=== PATIENT | male | born 1980 | race Hispanic/Latino ===

== ENCOUNTER 2022-10-29 23:22 | Emergency (ER) | payer OTHER ==
[~2022-10-29] VITALS: Ht 175.3 cm; Wt 138.8 kg
[~2022-10-29 23:22] MED LIST: APIX5TAB PO; METF-444 PO; PANT40TA PO
[2022-10-29 23:33] LABS: ABG BASE EXCESS -6.7 mmol/L (-2.0-3.0); ABG HCO3 15.2 mmol/L (21.0-28.0); ABG OXYGEN SATURATION 94.7 % (95.0-99.0); ABG PCO2 24 mmHg (35-48)
[2022-10-29 23:41] LABS: BASOPHILS % (AUTO) 0.5 % (0.0-5.0); EOSINOPHILS % (AUTO) 0.2 % (0.0-8.0); HEMATOCRIT 50.3 % (42-54); LYMPHOCYTES % (AUTO) 23.2 % (21.0-51.0); MEAN CORPUSCULAR HEMOGLOBIN 30.5 pg (27.0-33.0); MEAN CORPUSCULAR HGB CONC 34.2 g/dL (32.0-36.0); MEAN CORPUSCULAR VOLUME 89.2 fL (79-99); MONOCYTES % (AUTO) 6.6 % (3.0-13.0); NEUTROPHILS % (AUTO) 68.6 % (40.0-77.0); PLATELET COUNT (AUTO) 96 K/uL (130-400); RED BLOOD CELL COUNT(AUTO) 5.64 MIL/uL (4.50-6.20); RED CELL DISTRIBUTION WIDTH 13.7 % (11.0-15.5)
[2022-10-29 23:52] LABS: INFLUENZA TYPE A NEGATIVE FOR TYPE A (NEG); INFLUENZA TYPE B NEGATIVE FOR TYPE B (NEG)
[2022-10-29 23:57] LABS: ALBUMIN 3.4 g/dL (3.5-5.0); CREATININE 1.4 mg/dL (0.5-1.5); TOTAL PROTEIN, SERUM 7.1 g/dL (6.0-8.3)
[2022-10-30] MEDS ORDERED: 0.9%NACL 1000ML 3,000 ML IV ONE
[2022-10-30] MEDS ORDERED: IPRATROPIUM/ALBUTEROL SULFATE 3 ML SOLUTION IH ONE ×2
[2022-10-30] MEDS ORDERED: SOLU-MEDROL 125MG VIAL IVP ONE
[2022-10-30] MEDS ORDERED: IOHEXOL 350 MG/ML 100ML INFUS..BTL IV ONE (00:25)
[2022-10-30 01:08] LABS: INR 1.3 (0.85-1.15)
[2022-10-30 01:09] LABS: PARTIAL THROMBOPLASTIN TIME 26.4 SEC (26.3-35.5)
[2022-10-30] MEDS ORDERED: HEPARIN 25,000 UNITS/250ML D5W 250 ML IV SCH (02:30)
[2022-10-30] MEDS ORDERED: INSULIN HUMULIN R 100 UNIT/ML 3ML ONE (02:30)
[2022-10-30] MEDS ORDERED: INSULIN REGULAR, HUMAN 3ML 100 UNIT in 0.9%NACL 100ML 99 ML IV SCH ×2 (02:30)
[2022-10-30] MEDS ORDERED: HEPARIN 5,000 UNIT VIAL SQ PRN (02:30)
[2022-10-30 03:46] LABS: CREATININE 1.5 mg/dL (0.5-1.5); POTASSIUM 4.1 mmol/L (3.5-5.1)
[2022-10-30] MEDS ORDERED: INSULIN HUMULIN R 100 UNIT/ML 3ML IV ONE (04:00)
[2022-10-30 04:13] VITALS: BP 138/97
== END 2022-10-30 04:40 | disposition short-term general hospital (02) ==
LOC: EDH 23:22
DX: I26.99 Other pulmonary embolism without acute cor pulmonale (principal); E11.65 Type 2 diabetes mellitus with hyperglycemia; Z79.84 Long term (current) use of oral hypoglycemic drugs; Z79.899 Other long term (current) drug therapy; Z90.49 Acquired absence of other specified parts of digestive tract; Z86.718 Personal history of other venous thrombosis and embolism; Z98.890 Other specified postprocedural states
CPT/HCPCS: 99291; 71045; 87635; 96375 ×2; 82947; 84484 ×2; 80053; 82803; 83880; 85025; 85378; 85610; 85730; 87040 ×2; 87804 ×2; 83930; 82010 ×2; 36415 ×2; 99292; 93005; 36600; 94640; 82435; 85018; 82948 ×3; 84132; 84295; 96365; 71270; 96366; 96368; 80048; 83605 ×3; C9803; J2930; J1815 ×3; J1644 ×2; Q9967

== ENCOUNTER 2024-08-08 19:16 | Emergency (ER) | payer SELFPAY ==
[~2024-08-08] VITALS: Ht 180.3 cm; Wt 124.3 kg
--- NOTE | 2024-08-08 19:28 | ERN ---
General Stated Complaint: HIGH BLOOD SUGAR, HEADACHE, SWEATING Time Seen by MD: 19:21 Source: patient History of Present Illness Initial Comments A 43-year-old male coming in to be evaluated for generalized body weakness. Patient states he checked his blood glucose and it was 0409. Patient is a diabetic. Patient states he felt really weak left-sided weakness. Allergies: Coded Allergies: No Known Allergies (Unverified Allergy, Unknown, 08/06/21) Home Meds Active Scripts Metformin HCl (Metformin HCl) 500 Mg Tablet, 500 MG PO BID, #60 TAB 0 Refills Prov:COLINDRESCHETAN Melton AGPCNP 08/09/21 Apixaban (Eliquis) 5 Mg Tablet, 5 MG PO BID, #30 TAB 2 Refills Prov:CHETAN COLINDRES AGPCNP 08/09/21 Pantoprazole Sodium (Protonix) 40 Mg Tablet.dr, 40 MG PO DAILY, #30 TAB 0 Refills Prov:BERNADINECHETAN B AGPCNP 08/09/21 Apixaban (Eliquis) 5 Mg Tablet, 10 MG PO BID, #10 TAB 0 Refills Prov:CHETAN COLINDRES Geronimo AGPCNP 08/09/21 Past Medical History Past Medical History: Diabetes-Type II, DVT Past Surgical History: Cholecystectomy Surgical History Other: RIGHT HAND SURGERY Family History Family History: HTN Social History Social History: Negative, Lives with family ROS Dictation CONSTITUTIONAL: No chills, no fever, no weakness, no diaphoresis, no malaise. HEAD/FACE: No signs of trauma. EENT: No eye pain, no blurred vision, no tearing, no double vision, no ear pain, no ear discharge, no nose pain, no nasal congestion, no throat pain, no throat swelling, no mouth pain. RESPIRATORY: No cough, no orthopnea, no SOB, no stridor, no wheezing. CARDIOVASCULAR: No chest pain, no edema, no palpitations, no syncope. GASTROINTESTINAL/ABDOMINAL: No abdominal pain, no constipation, no diarrhea, no nausea, no vomiting. GENITOURINARY: No abnormal discharge, no dysuria, no frequent urination, no hematuria. No complaints of pain in the genitals. MUSCULOSKELETAL: No back pain, no gout, no joint pain, no joint swelling, no muscle pain, no muscle stiffness, no neck pain. INTEGUMENTARY: No change in color, no change in hair/nails, no dryness, no lesion, no lumps, no rash. NEUROLOGICAL/PSYCH: No anxiety, not depressed, no emotional problem, no headache, no numbness, no pre-existing deficit, no history of seizures, no tremors, no weakness. HEMATOLOGIC/LYMPHATIC: Not anemic, no history of blood clots, no apparent bleeding, no bruising, glands not swollen. All Systems Negative, Except as Noted. Physical Exam Physical Exam Dictation VITAL SIGNS: Reviewed. GENERAL APPEARANCE: Alert, oriented x3, no acute distress, obese. HEAD AND FACE: Non-traumatic. EYES: PERRL, pink conjunctivas, eyelid no trauma, anterior chamber clear. EARS: Pinnas intact and no signs of trauma or erythema. Ear canals clear and no discharge. TMs no erythema. NOSE: No discharge, no bleeding. OROPHARYNX: Mouth normal, teeth no caries, tongue pink. Pharynx clear, no erythema. Tonsils no exudates, no abscesses noted. Mucous membrane moist. NECK: Supple, non-tender, no thyromegaly, no masses, no JVD, no bruits. BREAST: Deferred. CHEST: No tenderness, no crepitus, no paradoxical movement, no retractions. LUNGS: Clear, well-ventilated, symmetric, no rales, no wheezing, no rhonchi, no stridor, good breath sounds bilaterally. HEART: Regular rate, regular rhythm, no murmur, no gallops. VASCULAR: No peripheral edema. ABDOMEN: Soft, positive bowel sounds, nondistended, no guarding, nontender, no rebound, no masses no hepatomegaly, no splenomegaly, no Munguia's sign, no hernias. RECTAL: Deferred. GENITAL: Deferred. NEUROLOGICAL: Normal speech, gross motor function intact, gross sensory function intact. MUSCULOSKELETAL: Neck nontender, full range of motion, back nontender, full range of motion. EXTREMITIES: Nontender, full range of motion. SKIN: Color pink, dry, no turgor, no rash, no lacerations, no abrasions, no contusions. LYMPHATICS: Deferred. Results Laboratory and Microbiology Lab and Micro Result Laboratory Tests Test 08/08/24 19:53 08/08/24 20:23 08/08/24 20:36 White Blood Count 7.8 K/uL (4.8-10.8) Red Blood Count 6.01 MIL/uL (4.50-6.20) Hemoglobin 18.7 g/dL (14.0-18.0) H Hematocrit 52.2 % (42-54) Mean Corpuscular Volume 86.9 fL (79-99) Mean Corpuscular Hemoglobin 31.1 pg (27.0-33.0) Mean Corpuscular Hemoglobin Concent 35.8 g/dL (32.0-36.0) Red Cell Distribution Width 11.9 % (11.0-15.5) Platelet Count 148 K/uL (130-400) Mean Platelet Volume 11.7 fL (7.5-10.5) H Immature Granulocyte % (Auto) 1.3 % (0-1) H Neutrophils (%) (Auto) 66.7 % (40.0-77.0) Lymphocytes (%) (Auto) 17.0 % (21.0-51.0) L Monocytes (%) (Auto) 12.1 % (3.0-13.0) Eosinophils (%) (Auto) 2.4 % (0.0-8.0) Basophils (%) (Auto) 0.5 % (0.0-5.0) Neutrophils # (Auto) 5.2 K/uL (1.8-7.7) Lymphocytes # (Auto) 1.3 K/uL (1.0-4.8) Monocytes # (Auto) 1.0 K/uL (0.1-1.0) Eosinophils # (Auto) 0.19 K/uL (0.00-0.70) Basophils # (Auto) 0.04 K/uL (0.00-0.20) Absolute Immature Granulocyte (auto 0.10 K/uL (0-1) Nucleated Red Blood Cells 0.0 % (0.0-0.19) Prothrombin Time 11.4 SEC (9.6-11.6) Prothromb Time International Ratio 1.02 (0.85-1.15) Activated Partial Thromboplast Time 29.6 SEC (26.3-35.5) Sodium Level 126 mmol/L (136-145) L Potassium Level 3.6 mmol/L (3.5-5.1) Chloride Level 91 mmol/L (101-111) L Carbon Dioxide Level 26 mmol/L (21-32) Blood Urea Nitrogen 12 mg/dL (7-18) Creatinine 1.0 mg/dL (0.5-1.3) Glomerular Filtration Rate Calc 95 mL/min (>90) Random Glucose 366 mg/dL (70-105) H Total Calcium 9.2 mg/dL (8.5-10.1) Magnesium Level 1.70 mg/dL (1.80-2.40) L Total Creatine Kinase 31 U/L (21-232) Troponin I High Sensitivity 6 ng/L (4-75) B-Type Natriuretic Peptide 14 pg/mL (0-100) Urine Color YELLOW (YELLOW) Urine Appearance CLEAR (CLEAR) Urine pH 6.0 (5.0-8.0) Urine Specific [place] 1.037 (1.001-1.031) Urine Protein 70 mg/dL (NEGATIVE) H Urine Glucose (UA) >=1000 mg/dL (NEGATIVE) H Urine Ketones 40 mg/dL (NEGATIVE) H Urine Occult Blood +- (TRACE) (NEGATIVE) H Urine Nitrate NEGATIVE (NEGATIVE) Urine Bilirubin NEGATIVE mg/dL (NEGATIVE) Urine Urobilinogen 0.2 mg/dL (0.2-1.0) Urine Leukocyte Esterase NEGATIVE [place]/uL Urine RBC 2-5 /HPF (0-1) H Urine WBC 0-1 /HPF (0-1) Urine Squamous Epithelial Cells RARE /HPF (0-2) Urine Bacteria None /HPF (None Seen) Blood Gas Specimen Type Arterial Arterial Blood pH 7.456 (7.350-7.450) Arterial Blood Partial Pressure CO2 28 mmHg (35-48) L Arterial Blood Partial Pressure O2 64.2 mmHg (83.0-108.0) L Arterial Blood HCO3 19.4 mmol/L (21.0-28.0) L Arterial Blood Oxygen Saturation 94.2 % (94.0-98.0) Arterial Blood Base Excess -2.5 mmol/L (-2.0-3.0) L Hemoglobin (Blood Gas) 19.9 g/dL (13.5-17.5) *H Sodium (Blood Gas) 124 MMOL/L (136-145) L Bedside Potassium (Blood Gas) 3.9 MMOL/L (3.4-4.5) Bedside Chloride (Blood Gas) 95 MMOL/L (98-107) L Bedside Glucose (Blood Gas) 369 MG/DL (65-95) H Bedside Ionized Calcium (Blood Gas) 1.20 MMOL/L (1.15-1.33) Bedside Lactic Acid (Blood Gas) 1.94 MMOL/L (0.36-0.75) H Blood Gas Temperature 37.0 CELSIUS (35.5-37.0) Blood Gas Vent Mode ROOMAIR (ROOM AIR) FiO2 21.0 % Blood Gas Specimen Comment RB P RAMAKRISHNA Labs Reviewed?: Yes EKG/XRAY/US/CT/MRI EKG Comment 08/08/2024 time 7:42 p.m. Ventricular rate 126 Sinus tachycardia [place] [address] wave elevation or depression MDM MDM: Differential diagnosis: Dehydration, diabetes mellitus hyperglycemia, sinusitis, Patient is a 43-year-old gentleman coming in to be evaluated for generalized body weakness he checked his sugar and he states that it was in the 400s. He was a diabetic. Patient was evaluated with cardiac workup glucose was in the 300s patient received 2 L of fluid due to hemoconcentration. Patient will be discharged in stable condition. Before discharging patient also states that he had bilateral ear discomfort I evaluated ears right-sided cerumen impaction left side tympanic membrane erythema as well as bilateral nasal turbinate swelling and oropharyngeal erythema. Patient will be discharged with a diagnosis of sinusitis with diabetes mellitus uncontrolled. ED Course Orders Procedure Category Date Status Time Cbc With Differential LAB 08/08/24 Complete 19:24 Prothrombin Time With LAB 08/08/24 Complete INR 19:24 B-Type Natriuretic LAB 08/08/24 Complete Peptide 19:24 Chest 1vw RAD 08/08/24 Resulted 19:24 12 Lead Ekg Tracing- EKG 08/08/24 Complete Technical 19:24 Lactated Ringers PHA 08/08/24 Complete 1000ml (Lactated 19:30 Magnesium LAB 08/08/24 Complete 19:24 Creatine Kinase, Total LAB 08/08/24 Complete 19:24 Troponin I High LAB 08/08/24 Complete Sensitivity 19:24 Urinalysis Profile LAB 08/08/24 Complete 19:24 Partial LAB 08/08/24 Complete Thromboplastin Time 19:24 Basic Metabolic Panel LAB 08/08/24 Complete 19:24 Arterial Blood Gas + RT 08/08/24 Transmitted 19:24 Magnesium 2gm Premix PHA 08/08/24 In Process 50ml (Magnesium 2gm 21:00 Arterial Blood Gas LAB 08/08/24 Complete Arterial + 20:36 0.9%Nacl 1000ml (Ns PHA 08/09/24 Complete 1000ml) 02:30 Current Medications Medications (Trade) Dose Ordered Sig/Sasha Route PRN Reason Start Time Stop Time Status Last Admin Dose Admin Lactated Ringer's 1,000 ml @ 0 mls/hr ONCE ONCE IV 08/08/24 19:30 08/08/24 19:31 DC 08/09/24 01:02 Magnesium Sulfate 50 ml @ 0 mls/hr PROTOCOL IV 08/08/24 21:00 09/07/24 20:59 08/09/24 01:03 Sodium Chloride 1,000 ml @ 0 mls/hr ONCE ONCE IV 08/09/24 02:30 08/09/24 02:31 DC 08/09/24 02:46 Vital Signs Date Time Temp Pulse Resp B/P (MAP) Pulse Ox O2 Delivery O2 Flow Rate FiO2 08/08/24 20:19 100.0 117 20 143/103 95 Room Air DX & DISP Disposition: Discharge Departure Impression: Primary Impression: Hyperglycemia Additional Impression: Sinusitis Condition: Stable Scripts Amoxicillin (Amoxicillin) 500 Mg Capsule 1 CAP PO TID for 10 Days, #30 CAP 0 Refills Prov: ARLEN CHARLTON MD 08/09/24 Naproxen (Naproxen) 375 Mg Tablet. 375 MG PO BID for 10 Days, #20 TAB Prov: ARLEN CHARLTON MD 08/09/24 Additional Instructions: FOLLOW-UP WITH PRIMARY CARE PROVIDER IN 1 TO 2 DAYS. TAKE MEDICATIONS DIRECTED HERE IN THE EMERGENCY ROOM. OKAY TO CONTINUE HOME MEDICATIONS UNLESS OTHERWISE DISCUSSED DURING YOUR VISIT IN THE EMERGENCY ROOM TODAY. RETURN TO YOUR NEAREST EMERGENCY ROOM IF SYMPTOMS WORSEN OR IF THERE IS NO IMPROVEMENT. CALL 911 IF YOU NEED IMMEDIATE ASSISTANCE. TAKE TYLENOL [id number] NEEDED AND IF NO CONTRAINDICATIONS ARE PRESENT. INCREASE ORAL HYDRATION. A WOUND CULTURE OR URINE CULTURE WAS ORDERED HERE IN THE EMERGENCY ROOM DEPARTMENT PLEASE FOLLOW-UP WITH PRIMARY CARE PROVIDER AND ADVISE THEM TO GET REPEAT PORTS FROM OUR FACILITY. IF YOU HAD ANY ELZA WRAP/SPLINTS THAT WERE APPLIED HERE, PLEASE DO NOT REMOVE THEM UNTIL YOU SEE YOUR PRIMARY CARE OR SPECIALTY. Referrals: Referrals: SELF,REFERRAL (PCP) HIRAM JANG MD Time of Disposition: 03:02 ARLEN CHARLTON MD Aug 08, 2024 19:28
--- NOTE | 2024-08-08 19:49 | EKG ---
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
[2024-08-08 20:01] LABS: BASOPHILS # (AUTO) 0.04 K/uL (0.00-0.20); BASOPHILS % (AUTO) 0.5 % (0.0-5.0); EOSINOPHILS # (AUTO) 0.19 K/uL (0.00-0.70); EOSINOPHILS % (AUTO) 2.4 % (0.0-8.0); HEMATOCRIT 52.2 % (42-54); LYMPHOCYTES # (AUTO) 1.3 K/uL (1.0-4.8); MEAN CORPUSCULAR HEMOGLOBIN 31.1 pg (27.0-33.0); MEAN CORPUSCULAR HGB CONC 35.8 g/dL (32.0-36.0); MEAN CORPUSCULAR VOLUME 86.9 fL (79-99); MONOCYTES % (AUTO) 12.1 % (3.0-13.0); NEUTROPHILS # (AUTO) 5.2 K/uL (1.8-7.7); NEUTROPHILS % (AUTO) 66.7 % (40.0-77.0); PLATELET COUNT (AUTO) 148 K/uL (130-400); RED BLOOD CELL COUNT(AUTO) 6.01 MIL/uL (4.50-6.20); RED CELL DISTRIBUTION WIDTH 11.9 % (11.0-15.5); WHITE BLOOD COUNT (AUTO) 7.8 K/uL (4.8-10.8)
--- NOTE | 2024-08-08 20:01 | HMCIMG ---
CHEST 1VW REASON: cp COMPARISON: None. FINDINGS: There are increased perihilar markings which could be early pneumonia or edema, most prominent on the right. Lungs are otherwise clear. Heart size is normal. There is no pleural effusion. Mediastinum and bony thorax appear unremarkable. IMPRESSION: 1. Mild perihilar infiltrate predominantly on the right, this could be early pneumonia or edema.
[2024-08-08 20:12] LABS: POTASSIUM 3.6 mmol/L (3.5-5.1)
[2024-08-08 20:14] LABS: INR 1.02 (0.85-1.15); PROTHROMBIN TIME 11.4 SEC (9.6-11.6)
[2024-08-08 20:15] LABS: PARTIAL THROMBOPLASTIN TIME 29.6 SEC (26.3-35.5)
[2024-08-08 20:21] LABS: MAGNESIUM 1.7 mg/dL (1.80-2.40)
[2024-08-08 20:34] LABS: B-TYPE NATRIURETIC PEPTIDE 14 pg/mL (0-100)
[2024-08-08 20:39] LABS: ABG BASE EXCESS -2.5 mmol/L (-2.0-3.0); ABG HCO3 19.4 mmol/L (21.0-28.0); ABG OXYGEN SATURATION 94.2 % (94.0-98.0); ABG PCO2 28 mmHg (35-48); ABG PH 7.456 (7.350-7.450); CARBON MONOXIDE 0 % (0.5-1.5); HHb 5.8; PO2, ARTERIAL BG 64.2 mmHg (83.0-108.0); VENT MODE, BG ROOMAIR (ROOM AIR)
[2024-08-08 20:49] LABS: ADD UA MICROSCOPIC YES; APPEARANCE,URINE CLEAR (CLEAR); BILIRUBIN,URINE NEGATIVE (NEGATIVE); COLOR,URINE YELLOW (YELLOW); GLUCOSE, URINE (UA) >=1000 mg/dL (NEGATIVE); KETONES,URINE 40 mg/dL (NEGATIVE); LEUKOCYTE ESTERASE ,URINE NEGATIVE Leu/uL (NEGATIVE); NITRATE,URINE NEGATIVE (NEGATIVE); PROTEIN,URINE 70 mg/dL (NEGATIVE); UROBILINOGEN,URINE 0.2 mg/dL (0.2-1.0)
[2024-08-08 20:51] LABS: MUCUS,URINE RARE LPF (None Seen); SQUAMOUS EPITHELIAL CELL,UR RARE /HPF (0-2); WBC,URINE 0-1 /HPF (0-1)
[2024-08-09] MEDS: LACTATED RINGERS 1000ML 1,000 ML IV ONE (01:02)
[2024-08-09] MEDS: MAGNESIUM 2GM PREMIX 50ML 50 ML IV SCH (01:03)
[2024-08-09] MEDS: 0.9%NACL 1000ML 1,000 ML IV ONE (02:46)
[2024-08-09] MEDS ORDERED: AMOX500C2 PO (03:03)
[2024-08-09] MEDS ORDERED: NAPR-1505 PO (03:03)
[2024-08-09 03:45] VITALS: BP 138/92; PULSE 94; RESP 18; TEMP 98.1; O2SAT 98
== END 2024-08-09 03:46 | disposition home or self-care (01) ==
LOC: EDH 19:16
DX: E11.65 Type 2 diabetes mellitus with hyperglycemia (principal); J32.9 Chronic sinusitis, unspecified; Z79.01 Long term (current) use of anticoagulants; Z79.84 Long term (current) use of oral hypoglycemic drugs; Z79.899 Other long term (current) drug therapy; Z90.49 Acquired absence of other specified parts of digestive tract; Z98.890 Other specified postprocedural states
CPT/HCPCS: 99285; 71045; 82947; 82550; 83735; 84484; 80048; 82803; 83880; 85025; 85610; 85730; 83605; 81001; 36415; 93005; 36600; 82435; 84132; 84295; 85018; 96365; 96366; J3475; J7030